=== PATIENT | female | born 1945 | race Caucasian/White ===

== ENCOUNTER 2025-07-20 23:38 | Inpatient (IN) | payer MEDICARE, SELFPAY ==
--- OUTSIDE RECORDS SUMMARY | 2022-01-08 03:46 | XMS_ITS | Continuity of Care Document ---
Author Organization [facility] Address [address] [place] [address] Phone Care Team Providers Care Hydropress Operator Name Role Phone Sunny León NP Unavailable Unavailable Allergies, Adverse Reactions, Alerts Substance Reaction Status Criticality trimethoprim Hives(moderate)Hives(moderate) Active No Information sulfamethoxazole Hives(moderate)Hives(moderate) Active No Information Medications Medication Instructions Dosage Effective Dates (start - stop) Status Comments Vitamin D3 25 mcg (1,000 unit) capsule take 3 capsule by oral route every day 3 capsule - Active Vitamin B-12 1,000 mcg/mL oral drops take 1 dropper by oral route every day - Active Depo-Medrol 40 mg/mL suspension for injection Administered in the office - No Longer Active Depo-Medrol 40 mg/mL suspension for injection Administered in the office - No Longer Active Problems Condition Type Effective Dates (start - stop) Clini jennifer Status Comments No Known Problems Procedures Procedure Date INJ TRIGGER POINT 08/20 MUSCL Routine Venipuncture OFFICE/OUTPATIENT VISIT NEW Depo-Medrol (methylprednisolone), per 20 mg Advance Directives Directive Yes / No Effective Date File Name No Information Encounters Encounter Description Practice Location Reason(s) For Visit Diagnoses Date Provider Providers Copied on Encounter [facility], [address] [place], [id number], [place] tel:[phone] [facility] No Information Mau Correa. [address] [place], [id number] , [place]. tel:[phone] OFFICE/OUTPAT IENT VISIT [facility], [address], [place], [place], [id number], [place] tel:[phone] [facility] Back pain (chief complaint)W ellness Check (chief complaint) Muscle spasm of backEncounter for other general examination 2 Mau Correa. [address] [place], [id number] , [place]. tel:[phone] Referring Provider: Sunny León, [place], [address] . tel:[phone] Family History Family Member Type Diagnosis Age At Onset Mother Problem alzheimer's disease (Cause O f ) Sister Problem Thyroid disorder Sister Problem Thyroid disorder Father Problem Digestive tract problems- heavy drinker (Cause Of ) Immunizations Vaccine Date Status Comments TDaP administered Source: Other R egistry Payers Payer name Insurance type Covered green party ID Authoriza tion(s) [employer] [id number] Social History Type Description Quantity Date Captured Comments Sex Female Smoking Status No Information Sexual Orientation Straight or heterosexual Gender Identity Female Chief Complaint And Reason For Visit No Information Reason For Referral Reason For Referral No Information Plan Of Treatment Date Type Action Status Goal Pneumococcal vaccine. Due on due Goal Zoster vaccine (1st). Due on due Goal Lipid panel. Due on 022 due Goal Sigmoidoscopy. Due on due Goal Depression screening. Due on due Goal Mammogram. Due on 2 due Goal Zoster vaccine. Due on due Goal FOBT. Due on due Goal DEXA scan. Due on 2 due Goal Tdap due Goal Influenza vaccine. Due on Ma due Goal Colonoscopy. Due on 022 due History Of Present Illness Encounter Date Complaint History Of Prese nt Illness Wellness Check No questions or concerns today other than noted above. She has not had any preventive work or Dr visits since 2018. Back pain Onset: 8 days ag o. The problem is fluctuating. Location of pain is lower back. The patient describes the pain as an ache, deep and spasms at time. Context: tried to lift 250 lb mower by self cause it was stuck and when lifting she felt a pop. Symptoms are aggravated by bending, coughing and getting in an out of bed. Functional Status Date Functional Assessmen t No Information Instructions Date Instruction Additional Infor hector Pending lab results, recommend follow upin 6-12 months. She is aware that we are opening a clinic in [place] and that there is a clinic in [place] that may be closer for her if she wishes to continue care there, otherwise I will be happy to see her again at her next appointment. Related to Encounter for other general examination OTC ibuprofen and AP AP as needed. notify me if worsens early next week. Related to Muscle spasm of back Assessments Type Assessment Date No Information Patient Care Teams Name Effective Dates (start - stop) Status Members No Information
--- OUTSIDE RECORDS SUMMARY | 2023-09-14 07:50 | XMS_ITS | Continuity of Care Document ---
Author Organization [facility] Address [address] [place] [address] Phone Care Team Providers Care Infection Control Rn Name Role Phone Shae Pacheco Unavailable Unavailable Allergies, Adverse Reactions, Alerts Substance Reaction Status Criticality trimethoprim Active No Information sulfamethoxazole Active No Informat ion Medications Medication Instructions Dosage Effective Dates (start - stop) Status Comments mupirocin 2 % topical ointment apply by topical route 2 times every day a small amount to the affected area x 1 week Not Available - Active cephalexin 500 mg capsule take 1 capsule by oral route every 12 hours 500 MG - No Longer Active Procedures Procedure Date REMOVE IMPACTED EAR [facility] REMOVE IMPACTED EAR [facility] OFFICE/OUTPATIENT VISIT, NEW Advance Directives Directive Yes / No Effective Date File Name No Information Encounters Encounter Description Practice Location Reason(s) For Visit Diagnoses Date Provider Providers Copied on Encounter OFFICE/OUTPAT IENT VISIT, [facility], [address], [place], [id number], tel:[phone] [facility] Facial Swelling (chief complaint) Cellulitis of face Singer Kaufman. [facility] [place], [address], [place]. tel:[phone] Referring Provider: Shae Hernández, [address] [place], [address]. tel:[phone] Family History Family Member Type Diagnosis Age At Onset Problem Family history of Alzheimer' s disease Payers Payer name Insurance type Covered republican ID Authoriza tion(s) [employer] MEDICARE [id number] 16 [id number] Social History Type Description Quantity Date Captured Comments Alcohol Use Details No Caffeine Use Details Unknown Tobacco Use Status Light cigarette smok er (1-9 cigs/day) Smoking Status Light tobacco smoker Smoking Tobacco Use Details Cigarette: No Details Available Cigarette: 1 Cigarettes per day Sex Female Vital Signs Date / Time: Height Weight BMI Pulse Rate Blood Pressure Temperature Respiratory Rate Body Surface Area Head Circumference Head Circ. Percentile Wt./Eliazar. Percentile BMI percentile Pulse Ox Inhaled Ox 4:50 PM 65.00 in 58.786 kg (129.60 lbs) 21.5 7 kg/m eter (2) 85 /min 140/90 mm[Hg] 97.20 F 16 /min 97 % 21 % Chief Complaint And Reason For Visit From encounter dated '09/14/2023 13:50'. Facial Swelling (chief complaint). Description: The symptoms began 1 day ago. Patient presents today with complaint of right-sided facial swelling. Patient states she woke up yesterday morning with the right side of her face swelling however today it is working its way up to her right eye and is affecting her vision. Patient states there was a possible bug bite on her right cheek that was blistered around the bite and red and was causing some mild discomfort. Patient denies nausea, vomiting, diarrhea, fever, shortness of breath or injury at this time. 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 Due o n due Goal DEXA Scan. Due on due Goal Pneumococcal vaccine. Due on due Goal Tdap. Due on due Goal PAP. Due on due Goal Mammogram. Due on due Goal Unhealthy drug use screening . Due on due Goal Depression screening. Due on due Goal Zoster vaccine (1st). Due on due Goal Influenza vaccine. Due on due Goal Td vaccine. Due on due History Of Present Illness Encounter Date Complaint History Of Prese nt Illness Facial Swelling The symptoms beg an 1 day ago. Patient presents today with complaint of right-sided facial swelling. Patient states she woke up yesterday morning with the right side of her face swelling however today it is working its way up to her right eye and is affecting her vision. Patient states there was a possible bug bite on her right cheek that was blistered around the bite and red and was causing some mild discomfort. Patient denies nausea, vomiting, diarrhea, fever, shortness of breath or injury at this time. 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 Take and apply an tibiotics as prescribed. 2. Keep area clean and dry, monitor for any changes or growing to the area. 3. Use OTC ibuprofen or tylenol for pain relief. May also try warm/cool compress. 4. Return with any new or worsening of symptoms, return or follow up if no improvement seen in 48-72 hours. Related to Cellulitis of face Assessments Type Assessment Date assessment Cellulitis of face impression 78-year-old female p resents for a possible bug bite with blisters to right lower cheek. Complains of redness, yellow drainage, and swelling to right cheek. Patient states she does have a cat. Denies scratches from cat. Patient she started to have a sore throat today and was concerned she could be having an anaphylactic reaction. She denies fever, chills, sweats, shortness of breath, difficulty breathing, chest pressure, chest pain, nausea, vomiting, or diarrhea. Reports allergies to Septra. Denies recent antibiotic use. Past medical history includes CVA. Physical exam reveals right lower cheek erythematous with bullae with honey colored weeping. There appears to be a small bite centrally located. Site is approximately 0.5 cm x 0.5 cm. Bilateral ear canals cerumen impacted. Remainder exam is within normal limits. After bilateral ear irrigation tympanic membranes are intact.Patient requesting irrigation of bilateral ears. Bilateral ear canals flushed. Patient tolerated well. Will treat patient for cellulitis to right cheek with cephalexin twice daily x 7 days and mupirocin ointment. Patient is to cleanse the site twice daily and apply mupirocin ointment. If redness and edema become worse patient is to return to clinic or follow-up with primary care provider. Patient verbalized understanding and agrees with plan of care. Mental Status Date Cognitive Assessment Orientation - [place] ed to time, place, person, situation. Patient Care Teams Name Effective Dates (start - stop) Status Members No Information
[2025-07-20 23:38] VITALS: BP 144/76; PULSE 98; RESP 16; TEMP 36.6; O2SAT 96; BMI 17.8
--- NOTE | 2025-07-20 23:46 | ECG_ITS ---
"[employer] | [facility] Date: 2025-07-21 Pat Name: Nadia Mane Department: Room: 267 Gender: Female Security Sergeant: : 1945 Requested By: Jean Marie Bradford Order Number: [id number] Méndez MD: Julia Elliott M.D. Measurements Intervals [place] Rate: 90 P: 69 PA: 148 QRS: 1 QRSD: 85 T: 49 QT: 375 QTc: 461 Interpretive Statements SINUS RHYTHM No previous ECG available for comparison Electronically Signed On 07-21-2025 23:40:46 GAMES MANAGER by Julia Elliott M.D. [id number]"
--- NOTE | 2025-07-20 23:47 | CTR_ITS ---
PROCEDURE INFORMATION: Exam: CTA Head With Contrast, Arteriography Exam date and time: 07/21/2025 1:01 AM Age: 79 years old Clinical indication: Weakness; Additional info: 36-48 hour HX of acute R sided weakness, HX of CVA 2018 TECHNIQUE: Imaging protocol: Computed tomographic angiography of the head with contrast. Exam focused on the arteries. 3D rendering (Not supervised by radiologist): MIP and/or 3D reconstructed images were created by the technologist. Radiation optimization: All CT scans at this facility use at least one of these dose optimization techniques: automated exposure control; mA and/or kV adjustment per patient size (includes targeted exams where dose is matched to clinical indication); or iterative reconstruction. Contrast material: OMNI 350; Contrast volume: 100 ml; Contrast route: INTRAVENOUS (IV); COMPARISON: CT head wo con* [id number] 07/21/2025 1:01 AM RADIATION DOSE METRICS: Total DLP (mGy-cm): 331.9 FINDINGS: ANTERIOR CIRCULATION: Right internal carotid artery: Less than 50% atherosclerotic stenosis of the right cavernous ICA. Right middle cerebral artery: No occlusion or significant stenosis. No aneurysm. Right anterior cerebral artery: No occlusion or significant stenosis. No aneurysm. Left internal carotid artery: Intracranial segment is patent with no significant stenosis. No aneurysm. Left middle cerebral artery: No occlusion or significant stenosis. No aneurysm. Left anterior cerebral artery: No occlusion or significant stenosis. No aneurysm. POSTERIOR CIRCULATION: Right vertebral artery: No occlusion or significant stenosis. No aneurysm. Left vertebral artery: No occlusion or significant stenosis. No aneurysm. 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 The basilar artery is patent otherwise. Right posterior cerebral artery: No occlusion or significant stenosis. No aneurysm. Left posterior cerebral artery: No occlusion or significant stenosis. No aneurysm. Left posterior communicating artery: Diminutive/hypoplastic left posterior communicating artery secondary to persistent left trigeminal artery. Brain: No definite mass, mass effect, or midline shift. Cerebral ventricles: No ventriculomegaly. Bones/joints: Unremarkable. No acute fracture. Soft tissues: Unremarkable. 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 PROCEDURE INFORMATION: Exam: CTA Neck With Contrast Exam date and time: 07/21/2025 1:01 AM Age: 79 years old Clinical indication: Weakness; Additional info: 36-48 hour HX of acute R sided weakness, HX of CVA 2017 TECHNIQUE: Imaging protocol: Computed tomographic angiography of the neck with contrast. Exam focused on the cervical segments of the vasculature. 3D rendering (Not supervised by radiologist): MIP and/or 3D reconstructed images were created by the technologist. Radiation optimization: All CT scans at this facility use at least one of these dose optimization techniques: automated exposure control; mA and/or kV adjustment per patient size (includes targeted exams where dose is matched to clinical indication); or iterative reconstruction. Contrast material: OMNI 350; Contrast volume: 100 ml; Contrast route: INTRAVENOUS (IV); COMPARISON: CR XR chest 1V portable [id number] 07/21/2025 12:15 AM RADIATION DOSE METRICS: Total DLP (mGy-cm): 331.9 FINDINGS: Right common carotid artery: Atherosclerosis of the right carotid bifurcation without substantial stenosis. Right internal carotid artery: No stenosis of the extracranial segment. No dissection or occlusion. Right external carotid artery: No occlusion or stenosis of the origin. Left common carotid artery: Less than 50% stenosis of the left carotid bifurcation. Left internal carotid artery: No stenosis of the extracranial segment. No dissection or occlusion. Left external carotid artery: No occlusion or stenosis of the origin. Right vertebral artery: No stenosis. No dissection or occlusion. Left vertebral artery: A dominant left vertebral artery is present. No focal stenosis. Aorta: Moderate atherosclerotic changes of the thoracic aorta and its major branch vessels is noted. Soft tissues: Normal. No significant soft tissue swelling. Bones/joints: Degenerative joint and disc disease is seen in the imaged spine. Multilevel chronic cervicothoracic compression deformities are noted. Lungs: Centrilobular emphysematous changes are present. CT/CT angio headneck* [id number] IMPRESSION: 1. No large vessel occlusion , dissection, or aneurysm. 2. Mild stenosis of the right internal carotid artery (less than 50% luminal stenosis) according to NASCET calculations. 3. 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 IMPRESSION: 1. Mild stenosis of the proximal left internal carotid artery (less than 50% luminal stenosis) according to NASCET calculations. 2. No large vessel occlusion , dissection, or aneurysm. 3. Degenerative joint and disc disease is seen in the imaged spine. Multilevel chronic cervicothoracic compression deformities are noted. Correlate with patient history/physical exam. 4. Emphysema. REFERENCES: NASCET CRITERIA. The degree of stenosis in the cervical segment of the internal carotid artery is based on NASCET criteria. Normal is no stenosis. Mild is less than 50% stenosis. Moderate is 50-69% stenosis. Severe is 70% to 99% stenosis. Total occlusion is no detectable patent lumen.
--- NOTE | 2025-07-20 23:47 | CTR_ITS ---
PROCEDURE INFORMATION: Exam: CT Head Without Contrast Exam date and time: 07/21/2025 1:01 AM Age: 79 years old Clinical indication: Weakness, extremity; Right; Additional info: 36-48 hour HX of acute R sided weakness, HX of CVA 2017 TECHNIQUE: Imaging protocol: Computed tomography of the head without contrast. Radiation optimization: All CT scans at this facility use at least one of these dose optimization techniques: automated exposure control; mA and/or kV adjustment per patient size (includes targeted exams where dose is matched to clinical indication); or iterative reconstruction. COMPARISON: CT angio headneck* [id number] 07/21/2025 1:01 AM RADIATION DOSE METRICS: Total DLP (mGy-cm): 1195.7 FINDINGS: Brain: Age-indeterminate, chronic appearing, bilateral basal ganglia lacunar infarct. Encephalomalacia of the left cerebellum, consistent with history of chronic infarct. Cerebral volume loss, which may be age related. Periventricular white matter hypoattenuation is consistent with chronic ischemic small vessel disease. Fernandez-white differentiation is otherwise normal. No mass or mass effect. No hemorrhage. Cerebral ventricles: Ex vacuo ventricular dilatation. Paranasal sinuses: Visualized sinuses are unremarkable. No fluid levels. Mastoid air cells: Visualized mastoid air cells are well aerated. Bones: Unremarkable. No acute fracture. Soft tissues: Unremarkable. Vasculature: Calcification of the V4 segment of the vertebral arteries is noted. CT/CT head wo con* [id number] IMPRESSION: 1. Age-indeterminate, chronic appearing, bilateral basal ganglia lacunar infarcts. 2. Encephalomalacia of the left cerebellum, consistent with history of chronic infarct. 3. Changes from chronic ischemic small vessel disease of periventricular white matter and cerebral volume loss. Otherwise, no acute intracranial process. If high clinical concern for acute ischemic stroke is present, MRI brain without contrast could be obtained.
[2025-07-20 23:50] VITALS: BP 144/76; PULSE 98; RESP 16; TEMP 36.6; O2SAT 96
[2025-07-21] VITALS (21 sets, daily range): BP systolic 118–163; BP diastolic 64–97; PULSE 75–98; RESP 16–19; TEMP 36.5–37; O2SAT 92–98
--- NOTE | 2025-07-21 00:01 | XRR_ITS ---
PROCEDURE INFORMATION: Exam: XR Chest Exam date and time: 07/21/2025 12:15 AM Age: 79 years old Clinical indication: Other: CVA; Additional info: Subacute CVA TECHNIQUE: Imaging protocol: Radiologic exam of the chest. Views: 1 view. COMPARISON: No relevant prior studies available. FINDINGS: Lungs: Unremarkable. No consolidation. Pleural spaces: Unremarkable. No pleural effusion. No pneumothorax. Heart/Mediastinum: Unremarkable. No cardiomegaly. Vasculature: Aortic atherosclerotic calcification. Bones/joints: Unremarkable. XR/XR chest 1V portable [id number] IMPRESSION: No acute findings.
--- NOTE | 2025-07-21 00:01 | XRR_ITS ---
PROCEDURE INFORMATION: Exam: XR Right Knee Exam date and time: 07/21/2025 12:15 AM Age: 79 years old Clinical indication: Injury or trauma; Fall; Blunt trauma; Knee; Right; Additional info: R knee pain S/P fall TECHNIQUE: Imaging protocol: Radiologic exam of the right knee. Views: 3 views. COMPARISON: No relevant prior studies available. FINDINGS: Bones/joints: Bony demineralization without evidence of acute fracture or dislocation. Joint spacing and alignment are maintained. No joint effusion. Soft tissues: Unremarkable. Vasculature: Peripheral arterial calcifications. XR/XR knee RT 3V* [id number] IMPRESSION: No acute findings.
--- NOTE | 2025-07-21 00:03 | ED_ITS ---
HPI - Neuro Symptoms/Deficit 2 General: Chief Complaint: Neuro Symptoms/Deficit Stated Complaint: fall, right side weakness Time Seen by Provider: 07/20/25 23:45 History of Present Illness: 79-year-old female reports a past medica l history significant for hyperlipidemia as well as a stroke in 2018 where she sustained right-sided symptoms that resolved with treatment, reports a normal baseline functional status after this event, presenting the emergency department with onset of right sided weakness since the evening of the 30st, reports that she went to bed around 11 PM feeling fine and woke up the next morning on 19 July with right-sided weakness, predominantly to the right arm but also significantly affecting the right leg, she reports at least 2 falls over the last 2 days secondary to this including 1 over the last evening where she fell down approximately 5 to 6 hours ago and was unable to get herself off the floor. She reports that during her first fall yesterday she did sustain some pain/trauma to her right knee and wrapped it tightly with a bandage to help keep it stable, she denies any headache, she denies any dizziness, she is not on blood thinners. NIH stroke score 2 NIHSS: Level Of Consciousness - 1a: 0 Level Of Consciousness Questions - 1b: Both Correct Level Of Consciousness Commands - 1c: Both Correct Best Gaze - 2: Normal Visual Thomas - 3: No Visual Loss Facial Palsy - 4: Minor Paralysis Motor Arm Right - 5: No Effort Against Hobbs Motor Arm Left - 5: No Drift Motor Leg Right - 6: Effort Against Hobbs Motor Leg Left - 6: No Drift Limb Ataxia - 7: Absent Sensory - 8: Normal Best Language - 9: No Aphasia Dysarthia - 10: Normal Extinction And Inattention - 11: 0 Score: Total Score: 6 Physical Exam 2 Narrative: EXAM NARRATIVE: Gen: A&Ox4, no acute distress, nontoxic appearing HEENT: Normocephalic, atraumatic, no scleral icterus, external ears normal, moist mucous membranes Neck: Supple, full range of motion, no observable masses Lungs: No Respiratory distress, Lungs clear to auscultation bilaterally no rales, rhonchi, wheezing CV: Regular rate and rhythm, no murmur, no pitting edema to lower extremities bilaterally Abdomen: Soft, nondistended, nontender to palpation MSK: No joint swelling, there is a significant color/temperature differential from the right leg to the left leg, the right leg is cold to the touch, there is palpable DP and PT pulses to the right lower extremity, there is a very tight Sergio wrap on the right knee which was removed with signs of improved perfusion to the limb after removal, the right knee has full range of motion without deformity, no overlying swelling or wounds to the skin Skin: No rashes, petechiae, lesions. Normal color per patient. Neuro: Alert and oriented, no slurred speech, patient with weakness to the right arm and right leg, no numbness, mild right facial droop, no slurred speech, no visual field cuts Psych: Appropriate for situation. Course 2 Reevaluation(s): Reevaluation #1: Results of workup with no large vessel occlusion on angio, blood work showing mild elevation in CK level not actionable, troponin proBNP mildly elevated, EKG no acute ischemia, cholesterol levels elevated with normal A1c, will initiate aspirin and statin, admit for stroke workup MRI. Time: 01:44 Consultations: Consultation #1: Discussed case with Dr. Ma of [facility] who will come to evaluate and admit the patient Time: 01:48 Vital Signs: Vital signs: Vital Signs Temperature 98 F 07/20/25 23:50 Pulse Rate 98 07/20/25 23:50 Respiratory Rate 16 07/20/25 23:50 Blood Pressure 144/76 07/20/25 23:50 Pulse Oximetry 96 07/20/25 23:50 Oxygen Delivery Me thod Room Air 07/20/25 23:50 MDM - Neuro Symptoms/Deficit Medical Decision Making 79-year-old female history of hyperlipidemia and CVA in 2018 with no persistent deficits per her, presenting to the emergency department with 36 to 48-hour history of right sided deficits consistent with subacute CVA, multiple falls including a fall this evening with prolonged immobilization on the ground, patient on exam had an NIH of 6 with right-sided deficits, she has no active headache, she did have a significant temperature differential to the right lower extremity with a cool extremity with palpable perfusion and pulses, this is possibly secondary to very tight Sergio wrap to the right knee which was removed, the skin changes to the leg improved after removal of the Sergio wrap, plan for stroke workup, reassess for disposition. Not a candidate for TNK or interventional given greater than 24 hours of symptoms. Lab Data Labs significant for leukocytosis to 14, no anemia, mild hypokalemia 3.2, mild elevation in CK level to 200s, mild elevation in troponin and proBNP levels 07/21/25 00:09 07/21/25 00:09 Radiology Impressions Head/Neck CTA 07/20/25 23:47 IMPRESSION: 1. No large vessel occlusion , dissection, or aneurysm. 2. Mild stenosis of the right internal carotid artery (less than 50% luminal stenosis) according to NASCET calculations. 3. 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 IMPRESSION: 1. Mild stenosis of the proximal left internal carotid artery (less than 50% luminal stenosis) according to NASCET calculations. 2. No large vessel occlusion , dissection, or aneurysm. 3. Degenerative joint and disc disease is seen in the imaged spine. Multilevel chronic cervicothoracic compression deformities are noted. Correlate with patient history/physical exam. 4. Emphysema. REFERENCES: NASCET CRITERIA. The degree of stenosis in the cervical segment of the internal carotid artery is based on NASCET criteria. Normal is no stenosis. Mild is less than 50% stenosis. Moderate is 50-69% stenosis. Severe is 70% to 99% stenosis. Total occlusion is no detectable patent lumen. Chest X-Ray 07/21/25 00:01 IMPRESSION: No acute findings. Knee X-Ray 07/21/25 00:01 IMPRESSION: No acute findings. Laboratory Results WBC 14.37 10^3/uL (3.29-11.43) H 07/21/25 00:09 RBC 3.65 10^6/uL (3.85-5.65) L 07/21/25 00:09 Hgb 11.30 g/dL (11.27-16.99) 07/21/25 00:09 Hct 33.9 % (36-47) L 07/21/25 00:09 MCV 92.9 fl (85-98) 07/21/25 00:09 MCH 31.0 pg (27-33) 07/21/25 00:09 MCHC 33.3 g/dL (30-55) 07/21/25 00:09 RDW 14.0 % (12.1-15.1) 07/21/25 00:09 Plt Count 315 10^3/cmm (157-399) 07/21/25 00:09 MPV 8.2 fL (7.4-10.4) 07/21/25 00:09 Neut % (Auto) 79.4 % 07/21/25 00:09 Lymph % (Auto) 13.0 % 07/21/25 00:09 [place] % (Auto) 6.7 % 07/21/25 00:09 Eos % (Auto) 0.1 % 07/21/25 00:09 Baso % (Auto) 0.1 % 07/21/25 00:09 Neut # (Auto) 11.40 10^3/uL (1.8-7.7) H 07/21/25 00:09 Lymph # (Auto) 1.9 10^3/uL (0.8-4.8) 07/21/25 00:09 [place] # (Auto) 1.0 10^3/uL (0.2-0.9) H 07/21/25 00:09 Eos # (Auto) 0.0 10^3/uL (0.0-0.8) 07/21/25 00:09 Baso # (Auto) 0.0 10^3/uL (0.0-0.1) 07/21/25 00:09 Nucleated RBC % (auto) 0 % 07/21/25 00:09 Nucleated RBCs # 0.0 /100WBC 07/21/25 00:09 PT 13.80 SECONDS (12.1-14.9) 07/21/25 00:09 INR 0.99 (0.8-1.2) 07/21/25 00:09 APTT 29.4 SECONDS (23.9-36.7) 07/21/25 00:09 Sodium 138 mmol/L (136-145) 07/21/25 00:09 Potassium 3.2 mmol/L (3.5-5.1) L 07/21/25 00:09 Chloride 100 mmol/L (98-107) 07/21/25 00:09 Carbon Dioxide 24 mmol/L (22-29) 07/21/25 00:09 Anion Gap 17.2 (5-19) 07/21/25 00:09 BUN 17 mg/dL (8-23) 07/21/25 00:09 Creatinine 0.6 mg/dL (0.5-0.9) 07/21/25 00:09 GFR Calculation Not Reportable 07/21/25 00:09 Glucose 90 mg/dL (65-115) 07/21/25 00:09 Estimat Average Glucose 120 07/21/25 00:09 Hemoglobin A1c 5.8 % (4.0-6.0) 07/21/25 00:09 Calculated Osmolality 287 mOsm/kg (285-295) 07/21/25 00:09 Calcium 10.0 mg/dL (8.5-10.5) 07/21/25 00:09 Magnesium 2.0 mg/dL (1.7-2.3) 07/21/25 00:09 Creatine Kinase 226 U/L (26-192) H 07/21/25 00:09 Troponin T Baseline 14 ng/L (0-10) H 07/21/25 00:09 NT-Pro-B Natriuret Pep 673 pg/mL (0-450) H 07/21/25 00:09 Triglycerides 133 mg/dL (0-150) 07/21/25 00:09 Cholesterol 246 mg/dL (0-200) H 07/21/25 00:09 LDL Cholesterol, Calc 163 mg/dL (50-129) H 07/21/25 00:09 HDL Cholesterol 56 mg/dL (60-100) L 07/21/25 00:09 LDL/HDL Ratio 2.91 RATIO (0.00-3.22) 07/21/25 00:09 Cholesterol/HDL Ratio 4.39 mg/dL (0.0-4.40) 07/21/25 00:09 All radiology interpretation(s) finalized by discharge ED provider radiology interpretation(s): CT angio of the head and neck showing mild bilateral carotid stenosis no large vessel occlusion, CT head negative for acute intracranial hemorrhage EKG Data EKG 1: I personally reviewed and interpreted this EKG as follows: EKG interpretation date: 07/21/25 EKG interpretation time: 00:04 Interpretation: Sinus rhythm at 90 bpm, no STEMI, no ectopy, QTc 423 ms, normal axis Discharge Plan Discharge Patient Disposition: Admitted As Inpatient Clinical Impression: Cerebrovascular accident Condition: Stable Coding Level of Care Code ED [place] Program Coordinator for Marielle Ferrell
[2025-07-21 00:17] LABS: Hematocrit 33.9 % (36-47); Hemoglobin 11.30 g/dL (11.27-16.99); Mean Corpuscular HGB Conc 33.3 g/dL (30-55); Mean Corpuscular Hemoglobin 31.0 pg (27-33); Mean Corpuscular Volume 92.9 fl (85-98); Nucleated Red Blood Cells % 0 %; Platelet Count 315 10^3/cmm (157-399); Red Blood Count 3.65 10^6/uL (3.85-5.65); White Blood Count 14.37 10^3/uL (3.29-11.43)
[2025-07-21 00:27] LABS: INR 0.99 (0.8-1.2); Prothrombin Time 13.80 SECONDS (12.1-14.9)
[2025-07-21 00:29] LABS: Partial Thromboplastin Time 29.4 SECONDS (23.9-36.7)
[2025-07-21 00:35] LABS: Estmated Average Glucose 120; Hemoglobin A1C 5.8 % (4.0-6.0)
[2025-07-21 00:36] LABS: Troponin(5th) Baseline 14 ng/L (0-10)
[2025-07-21 00:45] LABS: Blood Urea Nitrogen 17 mg/dL (8-23); Calcium 10.0 mg/dL (8.5-10.5); Carbon Dioxide 24 mmol/L (22-29); Chloride 100 mmol/L (98-107); Cholesterol 246 mg/dL (0-200); Creatinine Clr Calc Pharmacy 49.8439; Glucose 90 mg/dL (65-115); HDL Cholesterol 56 mg/dL (60-100); Magnesium 2.0 mg/dL (1.7-2.3); NT Pro B Type Natriuretic Pept 673 pg/mL (0-450); Osmolality Calculated 287 mOsm/kg (285-295); Sodium 138 mmol/L (136-145); Triglycerides 133 mg/dL (0-150)
[2025-07-21 00:47] LABS: Anion Gap 17.2 (5-19); Potassium 3.2 mmol/L (3.5-5.1)
[2025-07-21] MEDS: iohexol 350 mg/mL 500 mL Btl (per mL) IV (01:21)
--- NOTE | 2025-07-21 02:22 | XRR_ITS ---
PROCEDURE INFORMATION: Exam: XR Bilateral Hips Exam date and time: 07/21/2025 3:34 AM Age: 79 years old Clinical indication: Injury or trauma; Fall; Blunt trauma (contusions or hematomas); Bilateral; Hip; Additional info: Falls TECHNIQUE: Imaging protocol: Radiologic exam of the bilateral hips. Views: 2 views of hips with pelvis when performed. COMPARISON: No relevant prior studies available. FINDINGS: Bones/joints: There is no acute fracture or dislocation. If symptoms persist, follow-up imaging in several days may be useful to exclude an occult or subtle fracture. Mild arthritic changes for age in both hips. Mild degenerative changes in the lower lumbar spine. Soft tissues: No significant acute finding. Organs: Contrast is present in the urinary bladder from earlier CT exams. XR/XR hip BI 3-4V wo/w pel [id number] IMPRESSION: No acute fracture or dislocation.
[2025-07-21 03:41] LABS: Troponin 5 2HR 12.88 ng/L (0-10)
[2025-07-21 03:42] LABS: Troponin 5 2HR Delta -1.12 ABS# (0-10)
--- NOTE | 2025-07-21 05:41 | USCV_ITS ---
Nadia Mane Age: 79 Gender: F : 1945 Exam Date: 07/21/2025 19:01 Ordering Phys: Eddie Ma MD Technologist: MARANDA [place] [facility] [place]: acute stroke, history of prior CVA, Now with RIGHT hemiparesis BP: 138 / 82 HR: 74 Rhythm: Sinus Technical Quality: Adequate MEASUREMENTS (Male / Female) Normal Values 2D ECHO LV Diastolic Diameter PLAX 3.8 cm 4.2 - 5.9 / 3.9 - 5.3 cm IVS Diastolic Thickness 1.1 cm 0.6 - 1.0 / 0.6 - 0.9 cm IVS Systolic Thickness 1.7 cm LVPW Diastolic Thickness 1.0 cm 0.6 - 1.0 / 0.6 - 0.9 cm LVPW Systolic Thickness 1.2 cm LVOT Diameter 1.6 cm LV Ejection Fraction 2D Teich 55.9 % LV Ejection Fraction MOD 4C 56.8 % LV Ejection Fraction MOD 2C 45.5 % LV Ejection Fraction 2C AL 44.7 % LA Diameter 2.5 cm Aorta at Sinotubular Diameter 2.9 cm IVC Diameter 1.5 cm M-MODE LA Ao Ratio MM 1.1 AV Cusp Separation MM 1.5 cm DOPPLER AV Peak Velocity 149.0 cm/s LVOT Peak Velocity 101.0 cm/s AV Area Cont Eq vti 1.7 cm squared AV Area Cont Eq pk 1.4 cm squared MV Peak Velocity 106.0 cm/s MV Area PHT 3.2 cm squared Mitral E to A Ratio 0.8 TV Peak Velocity 197.5 cm/s TV Peak E Velocity 46.0 cm/s PV Peak Velocity 89.0 cm/s FINDINGS Left Ventricle Normal left ventricular size and systolic function, EF 57%. Mild left ventricular hypertrophy. No regional wall motion abnormalities. Grade I/IV diastolic dysfunction (abnormal relaxation filling pattern), normal to mildly elevated filling pressures. Right Ventricle Normal right ventricular size and systolic function. Right Atrium Normal right atrial size. Left Atrium Normal left atrial size. IA Septum Normal appearance of the interatrial septum. Mitral Valve Thickened mitral valve. Aortic Valve Thickened aortic valve. Mild aortic valve calcification. Tricuspid Valve No gross abnormalities noted Pulmonic Valve Thickened pulmonic valve. Pericardium No pericardial effusion. Aorta Normal aortic annulus size. IVC Normal inferior vena cava. CONCLUSIONS Normal left ventricular size and systolic function, EF 57%. Mild left ventricular hypertrophy. No regional wall motion abnormalities. Grade I/IV diastolic dysfunction (abnormal relaxation filling pattern), normal to mildly elevated filling pressures. Thickened mitral valve. Thickened aortic valve. Mild aortic valve calcification. Thickened pulmonic valve. There is no pericardial effusion. There are no intracardiac masses. No similar previous studies are available for comparison Dr Julia Elliott MD [facility] (Electronically Signed) Final Date: 22 July 2025 00:02 S
--- NOTE | 2025-07-21 06:21 | P.HP_ITS ---
Providers/Chief Complaint 2 Admitting Physician: Eddie Ma MD Chief Complaint: fall, right side weakness History of Present Illness Nadia Mane is a 79 year old female with prior history of CVA without residual deficits and HDL, who presented with complaints of right sided weakness and multiple falls. She states she was last known well on 07/18 going to bed at 2300 but on 07/19, she woke up with right sided weakness in the arms and legs. She went about her usual activities with difficulties between then and leading up to admission. In the interim, she did sustain multiple falls and she currently complains of bilateral hip pain. On the day of presentation she described her right arm and leg as paralyzed. In attempts to help her self, she wrapped her right leg. Due to her issues, she presented to the ED for further evaluation. Medications/Allergies Allergies Allergy/AdvReac Type Severity Reaction Status Date / Time sulfamethoxazole (From Allergy ALGY-Anaphy Verified 07/21/25 06:15 Septra) laxis trimethoprim (From ) Allergy ALGY-Anaphy Verified 07/21/25 06:15 laxis Vitals/I&O/Wt Last Vital Signs Temp 98.3 F 07/21/25 05:41 Pulse 84 07/21/25 05:41 Resp 18 07/21/25 05:41 BP 131/77 07/21/25 05:41 Pulse Ox 96 07/21/25 05:41 O2 Del Method Room Air 07/21/25 05:41 Weight last 48 hrs Weight 52.333 kg Weight 48.534 kg Physical Exam 2 Const: COMMON NORMALS: no acute distress and patient oriented x3 Resp: COMMON NORMALS: normal respiratory effort and No use of accessory muscles Cardio: COMMON NORMALS: regular rate, regular rhythm, S1 normal heart sound present and S2 normal heart sound present GI: COMMON NORMALS: Normal to inspection, nondistended, normoactive bowel sounds present Neuro: OTHER: Patient is unable to move the right arm or leg. 5/5 strength on the contralateral side. No slurred speech. Slight right-sided facial droop noted. Skin: COMMON NORMALS: no rashes or lesions noted Data 07/21/25 00:09 07/21/25 00:09 A&P Assessment and plan 1. Cerebrovascular accident: - Clinically strongly indicative of acute CVA - Admit to tele - Neurology consult in the AM - MRI brain without contrast - PT/OT/ST - Check A1c. Lipid panel noted - Check echocardiogram - NPO pending ST eval 2. Hypokalemia: - 80mEq potassium chloride IV PDMP PDMP Reviewed: Not Reviewed Attestations 2 Medical Necessity Statement*: Patient will require greater than two midnight to evaluate and manage stroke like symptoms Coding Level of Care Code Acute Code for [facility] Diagnoses Cerebrovascular accident I63.9 Hypokalemia E87.6
--- NOTE | 2025-07-21 06:36 | MR_ITS ---
WS: [id number] MRI BRAIN WITHOUT CONTRAST HISTORY: Suspected CVA COMPARISON: None available. TECHNIQUE: Diffusion imaging, multiplanar T1, T2 and FLAIR imaging obtained. MRI exam is compromised by motion artifact. Small, acute diffusion abnormality posterior limb of the LEFT internal capsule. Infarct extends into the LEFT parker radiata. No additional diffusion abnormalities. Moderate symmetric atrophy. Severe confluent T2 and FLAIR signal hyperintensity surrounding the ventricles and extending into the subcortical white matter. Mild small vessel disease bilaterally within the dalton. Small chronic lacunar infarcts bilaterally in the basal ganglia. Mild hippocampal atrophy. Ventricles and extra-axial spaces are mildly dilated on the basis of atrophy. No inferior displacement of cerebellar tonsils. The sella turcica and pituitary gland are unremarkable. Dural venous sinuses and [place] of [place] demonstrate no abnormality on this unenhanced studies. Paranasal sinuses: Clear. Mastoid air cells: Normal. Calvarium and scalp: Intact. MR/MR head wo con* [id number] IMPRESSION: 1. Small acute lacunar infarct in the LEFT posterior limb internal capsule. 2. No acute hemorrhage. 3. Severe confluent white matter changes in the supratentorial brain. 4. Small vessel changes bilaterally in the dalton. 5. Remote lacunar infarcts in the basal ganglia. 6. Moderate cerebral atrophy.
[2025-07-21] MEDS: potassium chloride premix 100 ML 50 MEQ IV (07:40)
[2025-07-21 07:50] LABS: Anion Gap 13.8 (5-19); Blood Urea Nitrogen 16 mg/dL (8-23); Calcium 9.3 mg/dL (8.5-10.5); Carbon Dioxide 26 mmol/L (22-29); Chloride 100 mmol/L (98-107); Glucose 103 mg/dL (65-115); Osmolality Calculated 283 mOsm/kg (285-295); Potassium 3.8 mmol/L (3.5-5.1); Sodium 136 mmol/L (136-145)
--- NOTE | 2025-07-21 08:41 | PC.NURSE ---
Pt stated IV potassium chloride burned. This nurse educated pt that this is a normal response to this medication, but I could offer an ice pack and/or slow the rate of the infusion down. Pt agreed. After a short time later, pt refused IV potassium. This nurse messaged Senia via [employer]. New orders placed for PO 40meq potassium chloride and d/c IV potassium chloride. There is a potassium chloride allergy listed in chart. This nurse asked pt what her reactions were to it and she said it just hammonds This nurse asked if she was able to take PO potassium or if she had a reaction to that as well and she stated she could take it. Med given.
--- NOTE | 2025-07-21 15:28 | P.PN_ITS ---
Subjective 2 Subjective: 07/21/25 Nadia Mane is a 79 year old female with prior history of CVA without residual deficits and HDL, who presented with complaints of right sided weakness and multiple falls. She states she was last known well on 07/18 going to bed at 2300 but on 07/19, she woke up with right sided weakness in the arms and legs. She went about her usual activities with difficulties between then and leading up to admission. In the interim, she did sustain multiple falls and she currently complains of bilateral hip pain. On the day of presentation she described her right arm and leg as paralyzed. In attempts to help her self, she wrapped her right leg. Due to her issues, she presented to the ED for further evaluation. 07/21/25 Dr. Rojo with Neurology [facility]. Patient reports that she was down for three days prior to her being able to crawl from the living room to the back porch to reach her phone to call EMS. Patient lives alone and has no family living. She will need case management at discharge for placement. Vitals/I&O/Wt Last Vital Signs Temp 98.6 F 07/21/25 11:11 Pulse 83 07/21/25 11:11 Resp 18 07/21/25 11:11 BP 138/82 07/21/25 11:11 Pulse Ox 96 07/21/25 11:11 O2 Del Method Room Air 07/21/25 11:11 07/21/25 07/21/25 07/21/25 06:59 14:59 22:59 Intake Total 22.5 / 22.5 Balance 22.5 / 22.5 Weight last 48 hrs Weight 52.333 kg Weight 48.534 kg Physical Exam 2 Const: COMMON NORMALS: no acute distress and patient oriented x3 Resp: COMMON NORMALS: normal respiratory effort and No use of accessory muscles Cardio: COMMON NORMALS: regular rate and regular rhythm RATE: regular rate RHYTHM: regular rhythm GI: COMMON NORMALS: Normal to inspection, nondistended, normoactive bowel sounds present Neuro: COMMON NORMALS: patient oriented x3 OTHER: Patient is unable to move the right arm or leg. 5/5 strength on the contralateral side. No slurred speech. Slight right-sided facial droop noted. Skin: COMMON NORMALS: no rashes or lesions noted GENERAL SKIN EXAM: no rashes or lesions noted Data 07/21/25 00:09 07/21/25 07:28 A&P Assessment and plan 1. Cerebrovascular accident: Clinically strongly indicative of acute CVA Admit to tele Neurology consult in the AM MRI brain without contrast - attempted to cancel per Dr. Rojo but patient was already in procedure PT/OT ST > patient cleared for level 7 easy to chew diet A1c. Lipid panel echocardiogram NPO pending ST eval 2. Hypokalemia: 80mEq potassium chloride IV declined by patient s/t history of IV burning sensation Potassium improved from 3.1 to 3.8 - stable. Gave supportive PO dose. PDMP PDMP Reviewed: Not Reviewed Attestations 2 Medical Necessity Statement*: Patient will require less than two midnight to observe and stroke like symptoms. Diagnoses Cerebrovascular accident I63.9 Hypokalemia E87.6
--- NOTE | 2025-07-21 19:12 | P.CONIM_ITS ---
Providers/Reason For Consult 2 Consulting Physician/Specialty*: Dr. Harriet Rojo Reason for Consult*: The patient had a stroke several days ago Attending Physician: Senia Childers, STENCIL MAKER, HALL COORDINATOR History of Present Illness History of Present Illness Nadia Mane is a 79 year old woman who had a stroke several years ago in 2018 with right-sided weakness. She presented here on 07/21 with right-sided weakness that had been present for several days. Her last known well was the evening of the . She was not a candidate for any type of intervention. She was frequently falling down at home and therefore not safe to return home. In the emergency department she had CT of the head and CT angiogram. There is absolutely no indication to do an MRI scan and I asked that that not be done but I see that I am coming to consult that the MRI has been completed despite my request. Not surprising, considered that she presented with symptoms typical of a lacunar stroke that there is a lacunar stroke present on her MRI. She has profound diffuse white matter disease and diffuse cortical and subcortical atrophy. CT head 07/21/2025 shows diffuse moderately severe white matter disease. Old lacunar infarcts bilateral caudate and bilateral thalamus Head/Neck CTA 07/20/25 23:47 1. No large vessel occlusion , dissection, or aneurysm. 2. Mild stenosis of the right internal carotid artery (less than 50% luminal stenosis) according to NASCET calculations. 3. 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 1. Mild stenosis of the proximal left internal carotid artery (less than 50% luminal stenosis) according to NASCET calculations. 2. No large vessel occlusion , dissection, or aneurysm. 3. Degenerative joint and disc disease is seen in the imaged spine. Multilevel chronic cervicothoracic compression deformities are noted. Correlate with patient history/physical exam. She was doing well until Saturday night when she developed profound weakness of her right side. She could not get up. She crawled around her house until finally she was able to call 911. She says that she could not get anything to eat or drink and that she scooted around for about a day before she could get to a phone and call 911. She has not noticed any improvement in her severe right hemiparesis. She tried to get up several times and fell. 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 She has no relatives. She was living alone at [place] when she had her stroke. Review of Systems 2 Narrative: No fever or chills. She had quite a bit of pain in her knee from taking a fall. She denies headache. No visual changes. Her memory is good. Medications/Allergies Home Medications ?Medication ?Instructions ?Recorded ?Confirmed ?Last Taken ?Type No Known Home Medications 07/21/2511/10 Unknown History Allergies Allergy/AdvReac Type Severity Reaction Status Date / Time potassium Allergy Unknown Verified 07/21/25 08:23 sulfamethoxazole (From Allergy ALGY-Anaphy Verified 07/21/25 06:15 Septra) laxis trimethoprim (From ) Allergy ALGY-Anaphy Verified 07/21/25 06:15 laxis Current Medications Generic Name Dose Route Start Last Admin Trade Name Ivone PRN Reason Stop Dose Admin Aspirin 81 mg 07/21/25 05:41 07/21/25 06:05 Aspirin 81 Mg Ec Tablet PO 81 mg DAILY EDVIN Administration Enoxaparin Sodium 40 mg 07/21/25 05:41 07/21/25 06:05 Enoxaparin 40 Mg/0.4 Ml Syringe SUBCUT 40 mg Q24H EDVIN Administration Vitals/I&O/Wt Last Vital Signs Temp 98.4 F 07/21/25 15:11 Pulse 83 07/21/25 15:11 Resp 18 07/21/25 15:11 BP 163/80 07/21/25 15:11 Pulse Ox 96 07/21/25 15:11 O2 Del Method Room Air 07/21/25 15:11 07/21/25 07/21/25 07/21/25 06:59 14:59 22:59 Intake Total 22.5 / 22.5 Balance 22.5 / 22.5 Weight last 48 hrs Weight 115 lb 6 oz Weight 107 lb Physical Exam 2 Narrative: GENERAL: She has a healthy appearance. She was getting her supper when I came in. MENTAL STATUS: Orientation was full to date, season, situation. Speech was fluent without word hesitation. No difficulty following a complex command. The affect was euthymic. Very cheerful despite her severe neurologic deficit. CRANIAL NERVES: Mild right facial weakness. No visual field cut. Full eye movements. She is mildly to moderately dysarthric. MOTOR: she has increased tone in the right arm and more so in the right leg with extensor posturing at the knee. She has no voluntary movement in the right arm but she could extend the right leg to command. SENSATION: All modalities reduced right arm leg and face COORDINATION: No specific cerebellar signs DEEP TENDON REFLEXES: Right toe upgoing. She is sensitive on the left but the left toe is downgoing. GAIT: Unable to stand. HEENT: She has a plethoric complexion. NECK: Carotid upstroke was strong bilaterally without bruits. The thyroid was not enlarged and there were no palpable lymph nodes. CHEST: Clear to auscultation. CARDIOVASCULAR: The heart sounds were normal without murmur or gallop. Regular rate and rhythm. EXTREMITIES: No deformities. Data 07/21/25 00:09 07/21/25 07:28 A&P Assessment and plan 1. Acute lacunar stroke: 79-year-old woman who has been fiercely independent and now presents with a dense sensorimotor defect on the right side that has not improved since she was hospitalized late last evening. By her description she had some fluctuation over the several days prior to arrival here. She is going to need physical and Occupational Therapy. Her head and neck CT angiogram did not show a large vessel occlusion. Cardiac source has not been ruled out and she needs to have an echocardiogram and should be on telemetry to look for atrial fibrillation. I do not think MRI has added anything to our diagnostic acumen. Speech therapy needs to evaluate her swallowing. My observation at the bedside is that her swallowing is good but she is dysarthric and would benefit from a more thorough evaluation. Occupational and physical therapy. She is going to need long-term rehabilitation as I do not think she is going to be able to return home. It is not surprising that she falls considering that she is profoundly weak throughout the right side. Consider neurorehab for more conservative rehab at [facility] near where she lives Plan: I would like to follow her in my clinic after discharge. Please call me if you have any specific questions about. PDMP PDMP Reviewed: Not Reviewed Consult Attestations 2 Medical Necessity Statement: This patient was normally functioning alone in her home and now is unable to ambulate or see to her own needs and the cause appears to be an acute ischemic lacunar stroke Coding Level of Care Code Acute Code for Marielle Ferrell Diagnoses Acute lacunar stroke I63.81
[2025-07-22 03:00] VITALS: BP 150/82; PULSE 86; RESP 18; TEMP 37; O2SAT 96
[2025-07-22 05:59] VITALS: PULSE 73
[2025-07-22 06:11] LABS: Estmated Average Glucose 105; Hemoglobin A1C 5.3 % (4.0-6.0)
[2025-07-22 07:00] VITALS: BP 139/72; PULSE 78; RESP 17; TEMP 36.7; O2SAT 95
--- NOTE | 2025-07-22 08:50 | P.PN_ITS ---
Vitals/I&O/Wt Last Vital Signs Temp 98.0 F 07/22/25 07:00 Pulse 78 07/22/25 07:00 Resp 17 07/22/25 07:00 BP 139/72 07/22/25 07:00 Pulse Ox 95 07/22/25 07:00 O2 Del Method Room Air 07/22/25 07:00 07/21/25 07/22/25 07/22/25 22:59 06:59 14:59 Intake Total 240 / 262.5 240 / 502.5 Balance 240 / 262.5 240 / 502.5 Weight last 48 hrs Weight 52.39 kg Weight 52.333 kg Weight 48.534 kg Data 07/21/25 00:09 07/21/25 07:28 A&P PDMP PDMP Reviewed: Not Reviewed Attestations 2 Medical Necessity Statement*: Patient continued hospitalization for less than 2 midnights?neurology has seen patient. Patient needs echocardiogram and telemetry continuous to monitor for A-fib.
[2025-07-22 11:00] VITALS: BP 139/95; PULSE 74; RESP 17; TEMP 36.8; O2SAT 96
--- NOTE | 2025-07-22 14:13 | PM.PN ---
Vitals/I&O/Wt Last Vital Signs Temp 98.3 F 07/22/25 11:00 Pulse 74 07/22/25 11:00 Resp 17 07/22/25 11:00 BP 139/95 07/22/25 11:00 Pulse Ox 96 07/22/25 11:00 O2 Del Method Room Air 07/22/25 11:00 07/21/25 07/22/25 07/22/25 22:59 06:59 14:59 Intake Total 240 / 262.5 240 / 502.5 600 / 600 Balance 240 / 262.5 240 / 502.5 600 / 600 Weight last 48 hrs Weight 52.39 kg Weight 52.333 kg Weight 48.534 kg Physical Exam Narrative: General: A&Ox4 , resting in supine HEENT: Normo-cephalic, atraumatic, grossly unremarkable exam Cardio: NSR, normal S1-S2 w/o any murmurs, rubs, or gallops and JVD normal Respiratory: Clear to auscultation w/o any wheezes, stridor, rhonchi GI: Abd soft, non-tender, non-distended, normo-active bowel sounds present Neuro: Moves all extremities, no sensory deficits, Normal speech Behavior: Appropriate and cooperative Extremities: Adequate palpable pulses. No clubbing, cyanosis or edema, Full ROM Data 07/21/25 00:09 07/21/25 07:28 A&P Assessment and plan Plan: Acute Lacunar Stroke Hx of CVA 2018 Hypokalemia Multiple Falls needs echo, telem f/u outpt w/ felicit[facility] PDMP PDMP Reviewed: Not Reviewed Coding Level of Care Code Acute Code for Chg Marialeena
--- NOTE | 2025-07-22 14:37 | P.DS_ITS ---
Documented by User: Michelle Cristina NP 07/22/25 14:38 Discharge Providers Date of Admission: 07/21/25 01:50 Date of Discharge: July 22, 2025 Attending Provider at Admission: Eddie Ma MD Attending Provider at Discharge: PRISCILA Aguiar, HONING MACHINE SET UP OPERATOR TOOL Diagnoses at Discharge Discharge Diagnosis 1. Acute lacunar stroke: 2. Hypokalemia: Reason for Visit Reason for Visit: fall, right side weakness Hospital Course Hospital Course Nadia Mane is a 79 year old female with prior history of CVA without residual deficits and HDL, who presented with complaints of right sided weakness and multiple falls. She states she was last known well on 07/18 going to bed at 2300 but on 07/19, she woke up with right sided weakness in the arms and legs. She went about her usual activities with difficulties between then and leading up to admission. In the interim, she did sustain multiple falls and she currently complains of bilateral hip pain. On the day of presentation she described her right arm and leg as paralyzed. In attempts to help her self, she wrapped her right leg. Due to her issues, she presented to the ED for further evaluation. 07/21/25 Dr. Rojo with Neurology consulting. Patient reports that she was down for three days prior to her being able to crawl from the living room to the back porch to reach her phone to call EMS. Patient lives alone and has no family living. She will need case management at discharge for placement. 07/22 ECHO significant for left ventricular hypertrophy and reduced EF, telemetry. Cleared for DC with Cardiology. Discharging to SNF with ASA, Plavix, and follow up with PCP and Neurology outpatient. Discharge Data Studies Completed and Pending Completed Studies During Hospitalization Category Date Time Status CT head wo con* [id number] Stat Cat Scan 07/20/25 23:47 Completed CTA head neck [CT angio headneck* [id number]] Stat Cat Scan 07/20/25 23:47 Completed XR chest 1V portable [id number] Stat Exams 07/21/25 00:01 Completed XR hip BI 3-4V wo/w pel [id number] Stat Exams 07/21/25 02:22 Completed XR knee RT 3V* [id number] Stat Exams 07/21/25 00:01 Completed MR head wo con* [id number] Routine MRI 07/21/25 06:36 Completed CV. echo complete* [id number] Routine Ultrasound 07/21/25 05:41 Completed Pending at discharge Category Date Time Status Hemoglobin A1C AM LABS Lab 07/23/25 04:00 Ordered CV. echo complete* [id number] Routine Ultrasound 07/22/25 08:47 Ordered Radiology Impressions Head CT 07/20/25 23:47 IMPRESSION: 1. Age-indeterminate, chronic appearing, bilateral basal ganglia lacunar infarcts. 2. Encephalomalacia of the left cerebellum, consistent with history of chronic infarct. 3. Changes from chronic ischemic small vessel disease of periventricular white matter and cerebral volume loss. Otherwise, no acute intracranial process. If high clinical concern for acute ischemic stroke is present, MRI brain without contrast could be obtained. Head/Neck CTA 07/20/25 23:47 IMPRESSION: 1. No large vessel occlusion , dissection, or aneurysm. 2. Mild stenosis of the right internal carotid artery (less than 50% luminal stenosis) according to NASCET calculations. 3. 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 IMPRESSION: 1. Mild stenosis of the proximal left internal carotid artery (less than 50% luminal stenosis) according to NASCET calculations. 2. No large vessel occlusion , dissection, or aneurysm. 3. Degenerative joint and disc disease is seen in the imaged spine. Multilevel chronic cervicothoracic compression deformities are noted. Correlate with patient history/physical exam. 4. Emphysema. REFERENCES: NASCET CRITERIA. The degree of stenosis in the cervical segment of the internal carotid artery is based on NASCET criteria. Normal is no stenosis. Mild is less than 50% stenosis. Moderate is 50-69% stenosis. Severe is 70% to 99% stenosis. Total occlusion is no detectable patent lumen. Chest X-Ray 07/21/25 00:01 IMPRESSION: No acute findings. Knee X-Ray 07/21/25 00:01 IMPRESSION: No acute findings. Hip/Pelvis X-Ray 07/21/25 02:22 IMPRESSION: No acute fracture or dislocation. Head MRI 07/21/25 06:36 IMPRESSION: 1. Small acute lacunar infarct in the LEFT posterior limb internal capsule. 2. No acute hemorrhage. 3. Severe confluent white matter changes in the supratentorial brain. 4. Small vessel changes bilaterally in the dalton. 5. Remote lacunar infarcts in the basal ganglia. 6. Moderate cerebral atrophy. Laboratory Results WBC 14.37 10^3/uL (3.29-11.43) H 07/21/25 00:09 RBC 3.65 10^6/uL (3.85-5.65) L 07/21/25 00:09 Hgb 11.30 g/dL (11.27-16.99) 07/21/25 00:09 Hct 33.9 % (36-47) L 07/21/25 00:09 MCV 92.9 fl (85-98) 07/21/25 00:09 MCH 31.0 pg (27-33) 07/21/25 00:09 MCHC 33.3 g/dL (30-55) 07/21/25 00:09 RDW 14.0 % (12.1-15.1) 07/21/25 00:09 Plt Count 315 10^3/cmm (157-399) 07/21/25 00:09 MPV 8.2 fL (7.4-10.4) 07/21/25 00:09 Neut % (Auto) 79.4 % 07/21/25 00:09 Lymph % (Auto) 13.0 % 07/21/25 00:09 [place] % (Auto) 6.7 % 07/21/25 00:09 Eos % (Auto) 0.1 % 07/21/25 00:09 Baso % (Auto) 0.1 % 07/21/25 00:09 Neut # (Auto) 11.40 10^3/uL (1.8-7.7) H 07/21/25 00:09 Lymph # (Auto) 1.9 10^3/uL (0.8-4.8) 07/21/25 00:09 [place] # (Auto) 1.0 10^3/uL (0.2-0.9) H 07/21/25 00:09 Eos # (Auto) 0.0 10^3/uL (0.0-0.8) 07/21/25 00:09 Baso # (Auto) 0.0 10^3/uL (0.0-0.1) 07/21/25 00:09 Nucleated RBC % (auto) 0 % 07/21/25 00:09 Nucleated RBCs # 0.0 /100WBC 07/21/25 00:09 PT 13.80 SECONDS (12.1-14.9) 07/21/25 00:09 INR 0.99 (0.8-1.2) 07/21/25 00:09 APTT 29.4 SECONDS (23.9-36.7) 07/21/25 00:09 Sodium 136 mmol/L (136-145) 07/21/25 07:28 Potassium 3.8 mmol/L (3.5-5.1) 07/21/25 07:28 Chloride 100 mmol/L (98-107) 07/21/25 07:28 Carbon Dioxide 26 mmol/L (22-29) 07/21/25 07:28 Anion Gap 13.8 (5-19) 07/21/25 07:28 BUN 16 mg/dL (8-23) 07/21/25 07:28 Creatinine 0.6 mg/dL (0.5-0.9) 07/21/25 07:28 GFR Calculation Not Reportable 07/21/25 07:28 Glucose 103 mg/dL (65-115) 07/21/25 07:28 Estimat Average Glucose 105 07/22/25 05:39 Hemoglobin A1c 5.3 % (4.0-6.0) 07/22/25 05:39 Calculated Osmolality 283 mOsm/kg (285-295) L 07/21/25 07:28 Calcium 9.3 mg/dL (8.5-10.5) 07/21/25 07:28 Magnesium 2.0 mg/dL (1.7-2.3) 07/21/25 00:09 Creatine Kinase 226 U/L (26-192) H 07/21/25 00:09 Troponin T Baseline 14 ng/L (0-10) H 07/21/25 00:09 Troponin T 120 Minute 12.88 ng/L (0-10) H 07/21/25 03:15 Delta Troponin T -1.12 ABS# (0-10) L 07/21/25 03:15 NT-Pro-B Natriuret Pep 673 pg/mL (0-450) H 07/21/25 00:09 Triglycerides 133 mg/dL (0-150) 07/21/25 00:09 Cholesterol 246 mg/dL (0-200) H 07/21/25 00:09 LDL Cholesterol, Calc 163 mg/dL (50-129) H 07/21/25 00:09 HDL Cholesterol 56 mg/dL (60-100) L 07/21/25 00:09 LDL/HDL Ratio 2.91 RATIO (0.00-3.22) 07/21/25 00:09 Cholesterol/HDL Ratio 4.39 mg/dL (0.0-4.40) 07/21/25 00:09 Vitals Last Vital Signs Temp 98.3 F 07/22/25 11:00 Pulse 74 07/22/25 11:00 Resp 17 07/22/25 11:00 BP 139/95 07/22/25 11:00 Pulse Ox 96 07/22/25 11:00 O2 Del Method Room Air 07/22/25 11:00 Discharge Plan Discharge Patient Disposition: Xfer SNF Condition: Stable Prescriptions: New atorvastatin 40 mg Tablet 40 mg PO BEDTIME Qty: 30 0RF aspirin 81 mg Tablet,Delayed Release (Dr/Ec) 81 mg PO DAILY Qty: 30 0RF clopidogrel [Plavix] 75 mg tablet 75 mg PO DAILY Qty: 20 0RF Appraisal Manager OK for DC: Neurology Discharge Order = DC NOW: Discharge Order (Routine); Ordered 07/22/25 Ordered By: Harriet Rojo Referrals: [facility] [Outside] Harriet Rojo MD [Physician, Neurology] - 12/13/25 3:00 pm Tesha Ma NP [Referring, Unknown] - 08/09/25 11:30 am Discharge Diet: As Directed Discharge Activity: As per PT/OT instructions Patient Instructions: Opioid Safety, Patient Portal & [place] Instructions Activity Restrictions/Additional Instructions: - Please continue level 7 (easy to chew) diet - Fill prescriptions for Aspirin and Plavix as directed - Follow up with PCP on 08/09/25 and Neurology on 12/13/25 - Fall precautions - Return to ED for any reoccurence of symptoms Coding Level of Care Code 51164 Diagnoses Acute lacunar stroke I63.81 Hypokalemia E87.6 Documented by User: Senia Childers, BOTTOM HOOP DRIVER, HONING MACHINE SET UP OPERATOR TOOL 07/22/25 15:28 Discharge Providers Consults: Dr. Harriet Rojo, Neurology Diagnoses at Discharge Discharge Diagnosis 1. Acute lacunar stroke: Details from hospital stay: Clinically strongly indicative of acute CVA Admit to tele Neurology consulted, Dr. Rojo, recommendations appreciated MRI brain without contrast - attempted to cancel per Dr. Rojo but patient was already in procedure PT/OT, appreciate recommendations ST > patient cleared for level 7 easy to chew diet A1C Lipid panel Echocardiogram; EF 57%, mild left ventricular hypertrophy ST eval - Level 7 diet, easy to chew Discharge with Aspirin and Plavix SNF Follow up with PCP and Neurology as directed 2. Hypokalemia: Details from hospital stay: 80mEq potassium chloride IV declined by patient s/t history of IV burning sensation Potassium improved from 3.1 to 3.8 - stable. Gave supportive PO dose. Reason for Visit Reason for Visit: fall, right side weakness Brief History: Fall precautions Patient discharging to halfway Hospital Course Hospital Course Nadia Mane is a 79 year old female with prior history of CVA without residual deficits and HDL, who presented with complaints of right sided weakness and multiple falls. She states she was last known well on 07/18 going to bed at 2300 but on 07/19, she woke up with right sided weakness in the arms and legs. She went about her usual activities with difficulties between then and leading up to admission. In the interim, she did sustain multiple falls and she currently complains of bilateral hip pain. On the day of presentation she described her right arm and leg as paralyzed. In attempts to help her self, she wrapped her right leg. Due to her issues, she presented to the ED for further evaluation. 07/21/25 Dr. Rojo with Neurology consulting. Patient reports that she was down for three days prior to her being able to crawl from the living room to the back porch to reach her phone to call EMS. Patient lives alone and has no family living. She will need case management at discharge for placement. 07/22 ECHO significant for left ventricular hypertrophy and reduced EF, telemetry. Cleared for DC with Cardiology. Discharging to SNF with ASA, Plavix, and follow up with PCP and Neurology outpatient. Physical Exam Narrative: GENERAL: She has a healthy appearance MENTAL STATUS: AAOx4 NECK: no palpable lymph nodes CHEST: Clear to auscultation CARDIOVASCULAR: Regular rate and rhythm. EXTREMITIES: No deformities. Discharge Plan Discharge Patient Disposition: Xfer SNF Condition: Stable Prescriptions: New atorvastatin 40 mg Tablet 40 mg PO BEDTIME Qty: 30 0RF aspirin 81 mg Tablet,Delayed Release (Dr/Ec) 81 mg PO DAILY Qty: 30 0RF clopidogrel [Plavix] 75 mg tablet 75 mg PO DAILY Qty: 20 0RF Appraisal Manager OK for DC: Neurology Discharge Order = DC NOW: Discharge Order (Routine); Ordered 07/22/25 Ordered By: Harriet Rojo Referrals: [facility] [Outside] Harriet Rojo MD [Physician, Neurology] - 12/13/25 3:00 pm Tesha Ma NP [Referring, Unknown] - 08/09/25 11:30 am Discharge Diet: As Directed Discharge Activity: As per PT/OT instructions Patient Instructions: Opioid Safety, Patient Portal & [place] Instructions Activity Restrictions/Additional Instructions: - Please continue level 7 (easy to chew) diet - Fill prescriptions for Aspirin and Plavix as directed - Follow up with PCP on 08/09/25 and Neurology on 12/13/25 - Fall precautions - Return to ED for any reoccurence of symptoms Discharge Attestations Time Spent in Discharge Care*: greater than 30 min Quality Metrics Clinical Quality Measures [ Cerebrovascular Accident { Contraindication to Antithrombotic: None; antithrombotic prescribed; Contraindication to Anticoagulation: None; anticoagulation prescribed; Contraindication to Statin: None; Statin prescribed;}] Coding Level of Care Code 95357 Diagnoses Acute lacunar stroke I63.81 Hypokalemia E87.6
[2025-07-22 15:00] VITALS: BP 166/81; PULSE 72; RESP 18; TEMP 36.3; O2SAT 97
[2025-07-22 16:00] VITALS: BP 166/81; PULSE 72; RESP 18; TEMP 36.3; O2SAT 97
== END 2025-07-22 17:45 | disposition skilled nursing facility (03) | DRG 65 ==
LOC: ER 07-21 02:24 → MEDSURG 07-21 03:18
PROVIDERS: Admitting Provider Family Medicine; Emergency Provider Student in an Organized Health Care Education/Training Program; Visit Provider Clinical Nurse Specialist Acute Care
DX: I63.81 Other cerebral infarction due to occlusion or stenosis of small artery (principal); G81.91 Hemiplegia, unspecified affecting right dominant side; I50.20 Unspecified systolic (congestive) heart failure; E87.6 Hypokalemia; W01.0XXA Fall on same level from slipping, tripping and stumbling without subsequent striking against object, initial encounter; E78.5 Hyperlipidemia, unspecified; Z79.82 Long term (current) use of aspirin; Z79.02 Long term (current) use of antithrombotics/antiplatelets; Z86.73 Personal history of transient ischemic attack (TIA), and cerebral infarction without residual deficits
CPT/HCPCS: 36415; 70450; 70496; 70498; 70551; 71045; 73522; 73562; 80048; 80061; 82550; 83036; 83735; 83880; 84484; 85025; 85610; 85730; 92523; 92610; 93005; 93306; 96372; 97110; 97161; 97167; 97530; 99285; J1650; J3480; J9999; L3924